=== PATIENT | male | born 1990 | race Two or more races ===

== ENCOUNTER 2019-02-09 06:27 | Emergency (ER) | payer OTHER ==
[2019-02-09 07:19] VITALS: BP 142/78; PULSE 92; TEMP 98.1; BMI 26.6
--- NOTE | 2019-02-09 07:37 | PDOC ---
History of Present Illness - General Chief Complaint: Injury Stated Complaint: FALL Time Seen by Provider: 02/09/19 07:37 - History of Present Illness Initial Comments: HPI: 28yo M with no reported PMH presenting after a mechanical fall. Patient was walking up some steps when he lost his balance and fell backwards. Did not lose consciousness, no nausea or vomiting. Endorsed significant pain in his left thigh. Did not take any medications at home for his pain. Admits to drinking five beers overnight for [employer] '[employer]. No other substances. Did hit his head as he has a soft tissue swelling on the left side of his forehead. No fevers, chills, chest pain, or shortness of breath. as read by radiology: " EXAM#: TYPE/EXAM: RESULT: [id number] RAD/KNEE 3 POS-LEFT Left knee: Fall. Pain. 2 views of the left knee submitted. There is no sign of fracture or subluxation and no sign of blastic or lytic changes. Swelling, foreign body or soft tissue air is not seen. If symptoms persist , further imaging may be of help. Impression: No acute left knee pathology. Reported By: Rigo Smyth MD 02/09/19902 " as read by radiology: " EXAM#: TYPE/EXAM: RESULT: [id number] RAD/FEMUR-LEFT Left femur: Fall. Pain. 4 views of the left femur have been submitted. There is no sign of fracture or subluxation and no sign of blastic or lytic changes. Swelling, foreign body or soft tissue air is not seen. If symptoms persist, further imaging may be of help. Reported By: Rigo Smyth MD 02/09/19902 " Pending head CT 02/09/19 09:06 CT Head as reported by radiology: " EXAM#: TYPE/EXAM: RESULT: [id number] CT/HEAD CT WITHOUT CONTRAST Cranial CT without contrast Clinical information status post fall No CT evidence of intracranial injury or calvarial fracture. There is no extra-axial fluid collection. No obvious mass lesion or infarct is seen. No definite abnormal intracranial attenuation. The ventricles and cisterns appear unremarkable. Impression: No CT evidence of acute intracranial pathology. A 1.7 x 1 cm mucus retention cyst/polyp is noted within the left sphenoid sinus. Reported By: Raymond Jimenes MD 02/09/19 0907 " Patient still with pain. Toradol given Viewed ambulating with steady gait Return precautions Stable for discharge Past History - Past Medical History Allergies/Adverse Reactions: Allergies Allergy/AdvReac Type Severity Reaction Status Date / Time No Known Allergies Allergy Verified 02/09/19 07:19 Home Medications: Ambulatory Orders NK [No Known Home Medication] 02/09/19 - Psycho Social/Smoking Cessation Hx Smoking History: Unknown if ever smoked Have you smoked in the past 12 months: No Information on smoking cessation initiated: No Hx Alcohol Use: No Drug/Substance Use Hx: No *Physical Exam - Vital Signs Last Vital Signs Temp Pulse Resp BP Pulse Ox 98.1 F 92 H 18 142/78 96 02/09/19 07:14 02/09/19 07:14 02/09/19 07:14 02/09/19 07:14 02/09/19 07:14 Discharge - Discharge Information Problems reviewed: Yes Clinical Impression/Diagnosis: Left thigh pain Fall Qualifiers: Encounter type: initial encounter Qualified Code(s): W19.XXXA - Unspecified fall, initial encounter Condition: Stable Disposition: HOME - Follow up/Referral - Patient Discharge Instructions Patient Printed Discharge Instructions: DI for Leg Pain Additional Instructions: You came into the emergency department after a fall. We performed a CT scan of your head which did not indicate acute pathology. Xrays did not indicate a fracture You can take [id number] tylenol or motrin for pain. Follow the instructions on the medication bottle. You suffered a soft tissue injury to your forehead that did not require stitches. Apply an antibiotic ointment to the area twice a day to prevent infection. Follow-up with a primary care provider within 72 hours to discuss this ED visit and to further evaluate your symptoms. Your workup is not complete until you do so. You have been referred to the [facility] in case you do not have a primary care doctor. Call and make an appointment at the number provided. Immediate medical attention is required if you experience: severe headache, fever and chills, nausea and vomiting, lightheadedness, inability to breathe or very rapid breathing, rapid irregular heartbeat, chest pain, or trouble breathing. If you think you are having an emergency, call for emergency medical services or present to the emergency department right away === Llegaste al departamento de emergencias despus de tata cada. Realizamos tata tomografa computarizada de paz lisa que no indicaba tata patologa aguda. Las radiografas no indicaron tata fractura Puede gabriella tylenol o motrin de venta dejuan para el dolor. Siga las instrucciones en la botella del medicamento. Sufri tata lesin en el tejido blando de la frente que no requiri puntos de sutura. Aplique tata pomada antibitica en el maribel dos veces al da para prevenir la infeccin. Marie un seguimiento con un proveedor de atencin primaria dentro de las 72 horas para analizar esta visita al servicio de urgencias y evaluar mejor jeimy sntomas. Paz trabajo no est completo hasta que lo marie. Lo ochoa derivado a la [place] en judy de que no tenga un mdico de atencin primaria. Llame y marie tata pantera al nmero provisto. Se requiere atencin mdica inmediata si experimenta: dolor de lisa intenso, fiebre y escalofros, nuseas y vmitos, aturdimiento, incapacidad para respirar o respiracin muy rpida, latidos cardacos irregulares rpidos, dolor en el pecho o dificultad para respirar. Si polina que tiene tata emergencia, llame a los servicios mdicos de emergencia o presntese de inmediato en el departamento de emergencias. Print Language: UKRAINIAN - Post Discharge Activity Work/Back to School Note: Back to Work
[2019-02-09] MEDS ORDERED: ACETAMINOPHEN 1000 MG/100 ML VIAL (NON FORMULARY) IVPB ONE (07:53)
[2019-02-09] MEDS ORDERED: ACETAMINOPHEN INJECTION 100 ML IVPB ONE (07:55)
--- NOTE | 2019-02-09 08:06 | PDOC ---
Documentation entered by Amy Coronado SCRIBE, acting as scribe for Ramona De La Torre MD. Ramona De La Torre MD: This documentation has been prepared by the scribe, Amy Coronado SCRIBE, under my direction and personally reviewed by me in its entirety. I confirm that the documentation accurately reflects all work, treatment, procedures, and medical decision making performed by me. Attending Attestation - Resident Resident Name: Virgie Matos - HPI HPI: 02/09/19 07:58 pt presents to the ED complaining of pain in the L LE after fall down the stairs two hours ago. Denies LOC, chest or abdominal pain. states that he was unable to ambulate after the injury, and complains of severe pain in the L thigh. tried pain relief with patches, but when that failed brought the patient to the ED. Patient admits to drinking prior to arrival. - Physicial Exam PE: 02/09/19 07:46 GENERAL: Awake and alert, appears uncomfortable. HEENT: Some multiple abrasions to the left side of his head. Neck: No spinous processes tenderness, supple, full range of motion. LUNGS: Breath sounds equal, clear to auscultation bilaterally. HEART: Regular rate and rhythm. ABDOMEN: Soft, nontender. EXTREMITIES: Left leg: no deformities, no ecchymosis, no point tenderness, no erythema. Full range of motion at the hip and knee. - Medical Decision Making 02/09/19 08:04 Pt presents to the ED complaining of acute pain to the LLE after fall down stairs. Denies LOC. Exam of the LLE is essentially normal, with no evidence of hematoma, infection or fracture. Will treat with pain control and get xrays to rule out fx. Will check CT head to rule out intracranial bleed. Will reassess.
[2019-02-09] MEDS ORDERED: KETOROLAC TROMETHAMINE 30 MG/1 ML VIAL IVPUSH ONE (09:25)
== END 2019-02-09 10:09 | disposition home or self-care (01) ==
LOC: JER 06:27
PROC: 3E033NZ Introduction of Analgesics, Hypnotics, Sedatives into Peripheral Vein, Percutaneous Approach (ICD-10-PCS; principal; 2019-02-09)
PROC: 3E0333Z Introduction of Anti-inflammatory into Peripheral Vein, Percutaneous Approach (ICD-10-PCS; 2019-02-09)
DX: M79.652 Pain in left thigh (principal); W18.39XA Other fall on same level, initial encounter; Y93.89 Activity, other specified; Y92.89 Other specified places as the place of occurrence of the external cause
CPT/HCPCS: 70450-TC; 73552-TC-LT-FY; 73562-TC-LT-FY; 99282-25; J0131